=== PATIENT | male | born 1945 ===

== ENCOUNTER 2018-11-24 10:58 | Outpatient (CLI) | payer OTHER ==
[~2018-11-24] VITALS: Ht 152.4 cm; Wt 95.3 kg
== END 2018-11-24 11:15 | disposition home or self-care (01) ==
LOC: OFIC 805 10:58
DX: H61.23 Impacted cerumen, bilateral (principal); H60.8X3 Other otitis externa, bilateral; H90.3 Sensorineural hearing loss, bilateral; R42 Dizziness and giddiness; G44.89 Other headache syndrome